=== PATIENT | female | born 1980 | race Caucasian/White ===

== ENCOUNTER 2023-09-20 13:32 | Outpatient (CLI) | payer BC | END 2023-09-20 13:33 | disposition home or self-care (01) | LOC: CSHMRI 13:32 | PROVIDERS: ATTEND Orthopaedic Surgery | DX: S92.011A Displaced fracture of body of right calcaneus, initial encounter for closed fracture (principal); S92.061D Displaced intraarticular fracture of right calcaneus, subsequent encounter for fracture with routine healing; M89.8X7 Other specified disorders of bone, ankle and foot ==